=== PATIENT | male | born 1950 | race Caucasian/White ===

== ENCOUNTER 2018-11-17 22:28 | Emergency (ER) | payer BC, MEDICARE ==
[2018-11-17] MEDS ORDERED: Ondansetron PF 4 MG/2 ML Vial ONE (22:42)
[2018-11-17] MEDS ORDERED: Piperacillin/Tazobactam 3.375 GM VIAL ONE (22:55)
[2018-11-17 22:56] LABS: Hemoglobin 15.1 g/dL (14.0-18.0); Mean Corpuscular HGB CONC 33.7 g/dL (32.0-36.0); Mean Corpuscular Hemoglobin 30.5 pg (27.0-31.0); Mean Corpuscular Volume 90.6 fL (78.0-98.0); Mean Platelet Volume 11.2 fL (7.4-10.4); Platelet Count 114 thou/uL (130-400); RBC Distribution Width 11.9 % (11.5-14.5); Red Blood Cell (RBC) Count 4.93 mill/uL (4.70-6.10); White Blood Cell (WBC) Count 12.5 thou/uL (4.8-10.8)
[2018-11-17] MEDS ORDERED: Lidocaine 1% PF 5 ML VIAL ONE (22:58)
[2018-11-17 23:01] LABS: ALT (SGPT) 36 U/L (8-55); AST (SGOT) 44 U/L (5-34); Albumin 3.6 g/dL (3.4-4.8); Alkaline Phosphatase 85 U/L (40-150); Anion Gap 29 mmol/L (10-20); BUN (Urea Nitrogen) 44 mg/dL (8.4-25.7); Bilirubin, Total 1.2 mg/dL (0.2-1.2); Calc. Creatinine Clearance 0 mL/min (70-130); Calcium 9.8 mg/dL (7.8-10.44); Carbon Dioxide 15 mmol/L (23-31); Chloride 84 mmol/L (98-107); Estimated GFR-MDRD 14; Globulin 3.8 g/dL (2.4-3.5); Glucose 538 mg/dL (80-115); Potassium 3.6 mmol/L (3.5-5.1); Protein, Total 7.4 g/dL (5.8-8.1); Sodium 124 mmol/L (136-145)
[2018-11-17 23:17] LABS: CKMB 2.2 ng/mL (0-6.6)
[2018-11-17 23:18] LABS: Band 16 % (5-11); Dohle Bodies SLIGHT; Lymphocytes 8 % (21-51); MDiff Complete? YES; Metamyelocyte 2 % (0-0); Monocytes 11 % (0-10); Neutrophil 63 % (42-75); Platelet Morphology Comment Appears Decreased; RBC Morphology Normal; Toxic Granulation SLIGHT
--- NOTE | 2018-11-17 23:20 | RAD ---
AP PORTABLE CHEST: 11/17/2018 2214 HOURS COMPARISON: No prior films available for comparison. FINDINGS: The heart is mildly enlarged, but there is no congestive change or pleural effusion. The lung are cl ear. The mediastinum shows no widening or shift. IMPRESSION: Slight cardiomegaly. POS: HOME
== END 2018-11-17 23:06 | disposition short-term general hospital (02) ==
LOC: BURERS 22:28
DX: A41.9 Sepsis, unspecified organism (principal); N19 Unspecified kidney failure; I10 Essential (primary) hypertension; I25.2 Old myocardial infarction; E78.1 Pure hyperglyceridemia; Z79.899 Other long term (current) drug therapy; Z79.82 Long term (current) use of aspirin; Z79.4 Long term (current) use of insulin
CPT/HCPCS: 10060; 36416; 71045; 80053; 82553; 83605; 83880; 84484; 85025; 87040; 87070; 87077; 87149; 87186; 87205; 93005; 96374; 96375; J2001; J2405; J2543